=== PATIENT | male | born 1975 | race Caucasian/White ===

== ENCOUNTER 2016-05-31 13:43 | Emergency (ER) | payer OTHER ==
[~2016-05-31] VITALS: Ht 182.9 cm; Wt 108.4 kg
[2016-05-31] MEDS ORDERED: PREDNISONE10 MG PO (14:24)
[2016-05-31] MEDS ORDERED: ULTRAM50 MG PO (14:24)
[2016-05-31] MEDS ORDERED: FLEXERIL10 MG PO (14:24)
[2016-05-31 14:49] VITALS: BP 148/95
== END 2016-05-31 14:53 | disposition home or self-care (01) ==
LOC: EME 13:43
DX: M54.5 Low back pain (principal); M62.830 Muscle spasm of back
CPT/HCPCS: 99281; 99284